=== PATIENT | female | born 1995 | race Caucasian/White ===

== ENCOUNTER 2022-11-28 11:39 | Outpatient (CLI) | payer OTHER | END 2022-11-28 12:36 | disposition home or self-care (01) | LOC: NST 11:39 | PROVIDERS: ATTEND Obstetrics & Gynecology Gynecology | DX: Z34.83 Encounter for supervision of other normal pregnancy, third trimester (principal) ==

== ENCOUNTER 2023-01-02 12:04 | Inpatient (IN) | payer OTHER ==
[~2023-01-02] VITALS: Ht 162.6 cm; Wt 87.1 kg
[2023-01-14] MEDS ORDERED: PRENATAL CAPLE1 EAC1 PO (09:02)
[2023-01-14] MEDS ORDERED: IRON325 MG (09:02)
[2023-01-14] MEDS ORDERED: LEXAPRO5 MG PO (09:03)
== END 2023-01-16 12:30 | disposition home or self-care (01) | DRG 807 ==
LOC: OB/GYN 01-14 06:29 → LDR 01-14 06:29 → OB/GYN 01-14 14:53
PROVIDERS: ADMIT Obstetrics & Gynecology Maternal & Fetal Medicine; ATTEND Obstetrics & Gynecology Maternal & Fetal Medicine
PROC: 10E0XZZ Delivery of Products of Conception, External Approach (ICD-10-PCS; principal; 2023-01-14)
PROC: 0KQM0ZZ Repair Perineum Muscle, Open Approach (ICD-10-PCS; 2023-01-14)
PROC: 4A1HXCZ Monitoring of Products of Conception, Cardiac Rate, External Approach (ICD-10-PCS; 2023-01-14)
DX: O70.1 Second degree perineal laceration during delivery (principal); Z37.0 Single live birth; Z3A.39 39 weeks gestation of pregnancy; Z20.822 Contact with and (suspected) exposure to COVID-19

== ENCOUNTER 2023-01-12 08:40 | Outpatient (CLI) | payer OTHER | END 2023-01-12 10:02 | disposition home or self-care (01) | LOC: NST 08:40 | PROVIDERS: ATTEND Obstetrics & Gynecology Maternal & Fetal Medicine | DX: Z34.83 Encounter for supervision of other normal pregnancy, third trimester (principal) ==

== ENCOUNTER 2024-05-10 05:23 | Inpatient (IN) | payer OTHER ==
[~2024-05-10] VITALS: Ht 162.6 cm; Wt 94.8 kg
[~2024-05-10 05:23] MED LIST: IRON325 MG; LEXAPRO5 MG PO; PRENATAL CAPLE1 EAC1 PO
[2024-05-10] MEDS ORDERED: RINGERS SOLUTION,LACTATED 1,000 ML IV SCH (05:45)
[2024-05-10 07:00] LABS: INR < 0.93; PARTIAL THROMBOPLASTIN TIME 21.7 SECONDS (22.0-34.0)
[2024-05-10 07:04] LABS: ALBUMIN 2.6 gm/dL (3.4-5.0); BILIRUBIN TOTAL 0.34 mg/dL (0.3-1.2); CALCIUM 8.9 mg/dL (8.5-10.1); CREATININE SERUM 0.4 mg/dL (0.55-1.02); GFR 187.41; GLOBULINA 3.6 G/DL (2.4-3.5); POTASSIUM 4.01 mEq/L (3.5-5.1); TOTAL PROTEIN 6.2 gm/dL (6.4-8.2)
[2024-05-10 07:10] LABS: PROTHROMBIN TIME 9.7 SECONDS (9.0-11.5)
[2024-05-10 07:15] LABS: HEMATOCRIT 27.1 % (36.0-45.00); MEAN CORPUSCULAR HEMOGLOBIN 23.6 pg (27.00-32.0); MEAN CORPUSCULAR HGB CONC 32.8 g/dl (32.0-36.0); PLATELET COUNT 265 K/uL (150-450); RED BLOOD COUNT 3.76 M/uL (4.00-6.00); RED CELL DISTRIBUTION WIDTH 18.8 % (11.5-14.5)
[2024-05-10 07:19] LABS: HEMOGLOBIN 8.9 g/dL (12.0-15.00)
[2024-05-10] MEDS ORDERED: OXYTOCIN 20 UNITS/500ML RL PIGGYBAG IV SCH (07:30)
[2024-05-10] MEDS ORDERED: MORPHINE SULFATE 4 MG/ML CARTRIDGE IV ONE (11:30)
[2024-05-10] MEDS ORDERED: ERYTHROMYCIN BASE 1 GM TUBE OP SCH (12:45)
[2024-05-10] MEDS ORDERED: OxyCODONE HCL/APAP UD (PERCOCET) PO PRN (12:45)
[2024-05-10] MEDS ORDERED: CHLORHEXIDINE GLUCONATE 120 ML BOTTLE TP SCH (12:45)
[2024-05-10] MEDS ORDERED: OXYTOCIN 1,000 ML IV SCH (12:45)
[2024-05-10] MEDS ORDERED: LIDOCAINE HCL 1% 10ML VIAL IJ ONE (13:00)
[2024-05-10] MEDS ORDERED: FERROUS SULFATE 325 MG TABLET.EC PO SCH (16:00)
[2024-05-10] MEDS ORDERED: PNV,CALCIUM 72/IRON/FOLIC ACID 1 TAB TABLET PO SCH (17:00)
[2024-05-10 17:22] LABS: HEMATOCRIT 26.2 % (36.0-45.00); MEAN CORPUSCULAR HEMOGLOBIN 23.3 pg (27.00-32.0); MEAN CORPUSCULAR HGB CONC 32.4 g/dl (32.0-36.0); PLATELET COUNT 253 K/uL (150-450); RED BLOOD COUNT 3.64 M/uL (4.00-6.00); RED CELL DISTRIBUTION WIDTH 18.7 % (11.5-14.5)
[2024-05-10 17:24] LABS: HEMOGLOBIN 8.5 g/dL (12.0-15.00)
[2024-05-10] MEDS ORDERED: KETOROLAC TROMETHAMINE 10 MG TABLET PO SCH (18:00)
[2024-05-11] MEDS ORDERED: FERROUS SULFATE 325 MG TABLET.EC PO SCH (09:00)
[2024-05-11] MEDS ORDERED: DOCUSATE SODIUM 100MG CAP PO SCH (19:30)
[2024-05-12] MEDS ORDERED: DOCUSATE SODIUM 100MG CAP PO SCH (09:00)
== END 2024-05-12 13:18 | disposition home or self-care (01) | DRG 807 ==
LOC: OB/GYN 05:23 → LDR 05:23 → OB/GYN 13:01
PROVIDERS: ADMIT Obstetrics & Gynecology Maternal & Fetal Medicine; ATTEND Obstetrics & Gynecology Maternal & Fetal Medicine
PROC: 10E0XZZ Delivery of Products of Conception, External Approach (ICD-10-PCS; principal; 2024-05-10)
PROC: 0KQM0ZZ Repair Perineum Muscle, Open Approach (ICD-10-PCS; 2024-05-10)
PROC: 4A1HXCZ Monitoring of Products of Conception, Cardiac Rate, External Approach (ICD-10-PCS; 2024-05-10)
PROC: 3E033VJ Introduction of Other Hormone into Peripheral Vein, Percutaneous Approach (ICD-10-PCS; 2024-05-10)
DX: O70.1 Second degree perineal laceration during delivery (principal); Z37.0 Single live birth; Z3A.39 39 weeks gestation of pregnancy; Z20.822 Contact with and (suspected) exposure to COVID-19

== ENCOUNTER 2025-03-16 07:54 | Outpatient (CLI) | payer OTHER | END 2025-03-16 07:55 | disposition home or self-care (01) | LOC: SONOGRAMA 07:54 | PROVIDERS: ATTEND Surgery | DX: E05.00 Thyrotoxicosis with diffuse goiter without thyrotoxic crisis or storm (principal) ==

== ENCOUNTER 2025-03-23 08:33 | Inpatient (IN) | payer OTHER ==
[~2025-03-23] VITALS: Ht 162.6 cm; Wt 81.6 kg
[2025-03-23 09:19] VITALS: BP 115/75
[2025-03-23 09:39] LABS: URINE APPEARANCE Clear; URINE BILIRRUBIN Negative (NEGATIVE); URINE BLOOD Negative; URINE COLOR Yellow; URINE GLUCOSE Negative (NEGATIVE); URINE KETONE Negative (NEGATIVE); URINE LEUKOCYTE Negative; URINE NITRATE Negative; URINE PROTEIN Negative (NEGATIVE); URINE UROBILINOGEN 0.2 E.U./dl
[2025-03-23 09:41] LABS: URINE BACTERIA 85.6 uL (0.0-1933); URINE WBC 3.7 uL (0.0-23.2)
[2025-03-23 09:45] LABS: BASO % 0.9 % (0.1-1.2); EOS % 7.1 % (0.7-7.0); HEMATOCRIT 36.5 % (34.1-44.9); HEMOGLOBIN 11.5 g/dL (11.2-15.7); LYMPH # 1.94 (1.18-3.74); LYMPH % 34.6 % (19.3-53.1); MEAN CORPUSCULAR HEMOGLOBIN 24.8 pg (25.6-32.2); MONO # 0.68 (0.24-0.82); NEUT # 2.52 (1.56-6.13); NEUT % 45.1 % (34.0-71.1); PLATELET COUNT 287 K/uL (163-369); RED BLOOD COUNT 4.63 M/uL (3.93-5.22); RED CELL DISTRIBUTION WIDTH 16.2 % (11.6-14.4)
[2025-03-23 09:46] LABS: MONO % 12.1 % (4.7-12.5)
[2025-03-23 09:59] LABS: PARTIAL THROMBOPLASTIN TIME 23.9 SECONDS (22.0-34.0); PROTHROMBIN TIME 10.9 SECONDS (9.0-11.5)
[2025-03-23 10:02] LABS: URINE RBC 1.9 uL (0.0-20.8)
[2025-03-23 10:39] LABS: ALBUMIN 3.6 gm/dL (3.4-5.0); BILIRUBIN TOTAL 0.6 mg/dL (0.3-1.2); CALCIUM 9.2 mg/dL (8.5-10.1); CREATININE SERUM 0.46 mg/dL (0.55-1.02); GFR 158.44; GLOBULINA 3.7 G/DL (2.4-3.5); POTASSIUM 4.39 mEq/L (3.5-5.1); TOTAL PROTEIN 7.3 gm/dL (6.4-8.2)
[2025-03-27] MEDS ORDERED: TAPAZOLE5 MG PO (10:53)
[2025-03-27] MEDS ORDERED: PANTOPRAZOLE SO40 MG PO (10:55)
[2025-03-27] MEDS ORDERED: PEPCID AC20 MG (10:56)
[2025-03-30] MEDS ORDERED: DEXAMETHASONE SODIUM PHOSPHATE 4 MG/ML VIAL ONE (07:02)
[2025-03-30] MEDS ORDERED: ENALAPRILAT DIHYDRATE 1.25 MG/ML VIAL IV PRN (10:30)
[2025-03-30] MEDS ORDERED: MORPHINE SULFATE 4 MG/ML VIAL IV ONE (10:30)
[2025-03-30] MEDS ORDERED: ONDANSETRON HCL 2 MG/ML VIAL IV PRN (10:30)
[2025-03-30 16:09] VITALS: BP 130/82; O2SAT 99
[2025-03-30] MEDS ORDERED: DIPHENHYDRAMINE HCL 37.5 MG,LIDOCAINE HCL 15 ML,MAG HYDROX/ALUMINUM HYD/SIMETH 15 ML PO SCH (17:00)
[2025-03-30] MEDS ORDERED: DIPHENHYDRAMINE HCL 150 MG,LIDOCAINE HCL 60 ML,MAG HYDROX/ALUMINUM HYD/SIMETH 60 ML PO SCH (17:00)
[2025-03-30] MEDS ORDERED: DIPHENHYDRAMINE HCL 75 MG,LIDOCAINE HCL 30 ML,MAG HYDROX/ALUMINUM HYD/SIMETH 30 ML PO SCH (17:00)
[2025-03-30] MEDS ORDERED: CYCLOBENZAPRINE HCL 5 MG TABLET PO SCH (17:00)
[2025-03-30] MEDS ORDERED: TRAMADOL HCL 50 MG TABLET PO SCH (17:00)
[2025-03-30] MEDS ORDERED: ACETAMINOPHEN 500 MG GEL..CAP PO SCH (17:00)
[2025-03-30] MEDS ORDERED: Calcium Carbonate 1 TAB TABLET PO SCH (21:00)
[2025-03-30] MEDS ORDERED: PANTOPRAZOLE SODIUM 40 MG/VIAL VIAL IV PUSH SCH (21:00)
[2025-03-31 00:57] VITALS: BP 109/66; O2SAT 98
[2025-03-31 08:00] VITALS: BP 117/68; O2SAT 99
== END 2025-03-31 14:10 | disposition home or self-care (01) | DRG 627 ==
LOC: O/R 03-30 05:45 → SURH 03-30 05:45
PROVIDERS: ADMIT Surgery; ATTEND Surgery
PROC: 0GTH0ZZ Resection of Right Thyroid Gland Lobe, Open Approach (ICD-10-PCS; principal; 2025-03-30 09:30)
DX: C73 Malignant neoplasm of thyroid gland (principal)

== ENCOUNTER 2025-07-31 09:15 | Day surgery (SDC) | payer OTHER ==
[2025-07-26 09:12] VITALS: BP 130/85
[2025-07-26 09:28] LABS: BASO % 1.4 % (0.1-1.2); EOS # 1.20 (0.04-0.54); LYMPH # 1.86 (1.18-3.74); LYMPH % 26.8 % (19.3-53.1); MEAN PLATELET VOLUME 9.70 fl (9.4-12.4); MONO # 0.66 (0.24-0.82); MONO % 9.5 % (4.7-12.5); NEUT # 3.11 (1.56-6.13); NEUT % 44.9 % (34.0-71.1); RED CELL DISTRIBUTION WIDTH 15.0 % (11.6-14.4)
[2025-07-26 09:32] LABS: EOS % 17.3 % (0.7-7.0)
[2025-07-26 09:37] LABS: URINE APPEARANCE Clear; URINE BILIRRUBIN Negative (NEGATIVE); URINE BLOOD Negative; URINE COLOR Yellow; URINE GLUCOSE Negative (NEGATIVE); URINE KETONE Negative (NEGATIVE); URINE LEUKOCYTE Negative; URINE NITRATE Negative; URINE PROTEIN Negative (NEGATIVE); URINE UROBILINOGEN 0.2 E.U./dl
[2025-07-26 09:39] LABS: URINE BACTERIA 171.5 uL (0.0-1933); URINE EPITHELIAL CELLS 13.0 uL (0.0-38.8); URINE RBC 2.1 uL (0.0-20.8); URINE WBC 2.1 uL (0.0-23.2)
[2025-07-26 09:43] LABS: URINE CAST 0.14 uL (0.0-1.40)
[2025-07-26 09:49] LABS: INR 1.0
[2025-07-26 10:13] LABS: ALT/SGPT 21.0 U/L (12-78); AST/SGOT 18.0 U/L (15-37); BILIRUBIN TOTAL 0.46 mg/dL (0.3-1.2); BUN CREA RATIO 29.0 (7.0-25.0); CREATININE SERUM 0.52 mg/dL (0.55-1.02); GFR 137.54; GLOBULINA 3.4 G/DL (2.4-3.5); GLUCOSE FASTING 89.0 mg/dL (65-100); OSMOLALITY SERUM 280.0 MOSM/KG (275-295)
[~2025-07-31] VITALS: Ht 172.7 cm; Wt 86.2 kg
[~2025-07-31 09:15] MED LIST changes: +PANTOPRAZOLE SO40 MG PO; +PEPCID AC20 MG; +TAPAZOLE5 MG PO
[2025-07-31] MEDS ORDERED: DEXAMETHASONE SODIUM PHOSPHATE 4 MG/ML VIAL IV ONE (10:45)
[2025-07-31] MEDS ORDERED: LIDOCAINE HCL 1%/EPINEPHRINE 20ML VIAL IJ ONE (10:45)
== END 2025-07-31 16:30 | disposition home or self-care (01) ==
LOC: CIR.AMB 09:15 → O/R 16:30 → CIR.AMB 16:30
PROVIDERS: ATTEND Surgery
DX: C73 Malignant neoplasm of thyroid gland (principal); E05.00 Thyrotoxicosis with diffuse goiter without thyrotoxic crisis or storm

== ENCOUNTER 2025-09-07 18:16 | Emergency (ER) | payer OTHER ==
[~2025-09-07] VITALS: Ht 162.6 cm; Wt 88.5 kg
[2025-09-07 18:45] VITALS: BP 132/83; O2SAT 100
[2025-09-07 19:32] LABS: BASO % 0.9 % (0.1-1.2); EOS # 0.74 (0.04-0.54); EOS % 6.9 % (0.7-7.0); LYMPH # 3.36 (1.18-3.74); LYMPH % 31.5 % (19.3-53.1); MEAN PLATELET VOLUME 9.90 fl (9.4-12.4); MONO # 1.08 (0.24-0.82); MONO % 10.1 % (4.7-12.5); NEUT # 5.34 (1.56-6.13); NEUT % 50.3 % (34.0-71.1); RED CELL DISTRIBUTION WIDTH 14.0 % (11.6-14.4)
[2025-09-07 20:08] LABS: ALT/SGPT 21.0 U/L (12-78); AST/SGOT 13.0 U/L (15-37); BILIRUBIN TOTAL 0.19 mg/dL (0.3-1.2); BUN CREA RATIO 24.0 (7.0-25.0); CREATININE SERUM 0.58 mg/dL (0.55-1.02); GFR 121.25; GLOBULINA 4.0 G/DL (2.4-3.5); GLUCOSE FASTING 80.0 mg/dL (65-100); OSMOLALITY SERUM 283.0 MOSM/KG (275-295)
[2025-09-07] MEDS ORDERED: METAXALONE400 MG PO (20:39)
[2025-09-07] MEDS ORDERED: NABUMETONE500 MG PO (20:39)
== END 2025-09-07 21:17 | disposition home or self-care (01) ==
LOC: ER 18:17
PROVIDERS: General Practice
DX: R25.2 Cramp and spasm (principal); R53.1 Weakness; Z85.850 Personal history of malignant neoplasm of thyroid; E03.8 Other specified hypothyroidism; J45.909 Unspecified asthma, uncomplicated